=== PATIENT | male | born 1990 | race Caucasian/White ===

== ENCOUNTER → 2022-10-18 | Outpatient (CLI) | payer OTHER ==
[~2022-10-18] MED LIST: ANAPROX DS550 MG PO; ATIVAN1 MG PO; CLARITIN10 MG PO; FLEXERIL10 MG PO; KEFLEX500 MG PO; MEDROL DOSEPAK4 MG PO; MOTRIN800 MG PO; Meclizine25 MG PO; NKHM; PEN-VEE K500 MG PO; PERCOCET 325 MG1 TA2 PO; XANAX1 MG PO; ZANTAC150 MG PO; ZOFRAN ODT4 MG SL; ZOFRAN4 MG PO
[2022-10-18 16:19] LABS: BASO % 0.1 % (0.0-1.0); EOS % 0.2 % (1.0-4.0); HEMATOCRIT 39.6 % (42.0-52.0); LYMPH % 15.9 % (27.0-41.0); MEAN CELL VOLUME 91.2 fl (80.0-94.0); MEAN CORPUSCULAR HGB 30.4 pg (27.0-31.0); MEAN CORPUSCULAR HGB CONC 33.3 g/dl (33.0-37.0); MEAN PLATELET VOLUME 8.8 fl (9.6-12.3); MONO # 1.2 10*3/uL (0.1-1.0); MONO % 6.2 % (3.0-9.0); NEUT # 14.5 10*3/uL (2.3-7.9); NEUT % 76.6 % (47.0-73.0); PLATELET COUNT AUTOMATED 327 10*3/uL (130-400); RED BLOOD COUNT 4.34 10*6/uL (4.50-5.90); RETICULOCYTE % 1.06 % (0.50-2.50)
[2022-10-18 16:20] LABS: BILIRUBIN Negative (Negative); BLOOD Negative (Negative); CLARITY Clear (Clear); COLOR Yellow (Yellow); GLUCOSE Negative (Negative); KETONE Trace (Negative); LEUKO ESTERASE Negative (Negative); NITRITE Negative (Negative); SPECIFIC GRAVITY >= 1.030 (1.001-1.030)
[2022-10-18 16:31] LABS: MUCOUS 2+; RBC 0-2 rbc/hpf (0-2)
[2022-10-18 16:44] LABS: ALKALINE PHOSPHATASE 77 U/L (46-116); BUN 17 mg/dl (9-23); CHLORIDE 104 mmol/L (98-107); CHOLESTEROL 153 mg/dL (<200); GAMMA GLUTAMYL TRANSPEPTIDASE 47 U/L (0-73); LDL CHOLESTEROL 84 mg/dL (9-159); SGPT/ALT 72 U/L (10-49); T3 UPTAKE 29.8 % (22.4-36.7); THYROID STIM HORMONE (HS) 0.228 uIU/ml (0.550-4.780); THYROXINE (T4) TOTAL 5.5 ug/dl (4.5-10.9); TOTAL PROTEIN 6.5 gm/dL (6.0-8.0); TRIGLYCERIDES 179 mg/dl (<150)
[2022-10-18 16:46] LABS: VITAMIN D, 25-HYDROXY 37.7 ng/mL (30-100)
== END | disposition home or self-care (01) ==
LOC: LAB 16:04
PROVIDERS: ATTEND Family Medicine
DX: R79.89 Other specified abnormal findings of blood chemistry (principal); R53.83 Other fatigue; E78.5 Hyperlipidemia, unspecified; R74.8 Abnormal levels of other serum enzymes; E55.9 Vitamin D deficiency, unspecified

== ENCOUNTER → 2022-10-25 | Outpatient (CLI) | payer OTHER ==
[2022-10-25 15:05] LABS: HEMATOCRIT 39.9 % (42.0-52.0); MEAN CELL VOLUME 91.9 fl (80.0-94.0); MEAN CORPUSCULAR HGB 30.4 pg (27.0-31.0); MEAN CORPUSCULAR HGB CONC 33.1 g/dl (33.0-37.0); MEAN PLATELET VOLUME 8.9 fl (9.6-12.3); PLATELET COUNT AUTOMATED 238 10*3/uL (130-400); RED BLOOD COUNT 4.34 10*6/uL (4.50-5.90); RED CELL DISTRI WIDTH 11.9 % (0-14.5); RETICULOCYTE % 0.95 % (0.50-2.50); WHITE BLOOD COUNT 8.5 10*3/uL (4.8-10.8)
[2022-10-25 15:13] LABS: MANUAL DIFF REFLEX YES
[2022-10-25 15:40] LABS: ATYPICAL LYMPHS 1 % (0-0); BASOPHILS 1 % (0-1); BURR CELLS FEW; PLATELET SUFFICIENCY NORMAL (NORMAL); TOTAL CELLS COUNTED 100 #CELLS
[2022-10-27 12:07] LABS: A/G RATIO 1.4 (0.7-1.7); ALBUMIN 3.5 g/dL (2.9-4.4); ALPHA-1-GLOBULIN 0.2 g/dL (0.0-0.4); ALPHA-2-GLOBULIN 0.7 g/dL (0.4-1.0); GAMMA GLOBULIN 0.6 g/dL (0.4-1.8); GLOBULIN, TOTAL 2.5 g/dL (2.2-3.9); M-SPIKE Not Observed g/dL (Not Observed)
== END | disposition home or self-care (01) ==
LOC: LAB 14:43
PROVIDERS: ATTEND Family Medicine
DX: R79.89 Other specified abnormal findings of blood chemistry (principal); R53.83 Other fatigue; E78.5 Hyperlipidemia, unspecified; E55.9 Vitamin D deficiency, unspecified

== ENCOUNTER 2023-07-05 20:56 | Emergency (ER) | payer OTHER ==
[~2023-07-05] VITALS: Ht 182.8 cm; Wt 94.3 kg
[2023-07-05 21:02] VITALS: BP 123/100
[2023-07-05] MEDS ORDERED: COZAAR25 M1 PO (21:12)
[2023-07-05] MEDS ORDERED: FLUORESCEIN SODIUM 1 MG STRIP OPH ONE (21:15)
[2023-07-05] MEDS ORDERED: Tetracaine Hydrochloride 0.5% 4 ML BOT OPH ONE (21:15)
[2023-07-05] MEDS ORDERED: OFLOXACIN 10 ML10 M2 OS (21:53)
[2023-07-05] MEDS ORDERED: OFLOXACIN 0.3% 5 ML BOTTLE OPH ONE (21:55)
== END 2023-07-05 22:15 | disposition home or self-care (01) ==
LOC: ED 20:56
DX: S05.02XA Injury of conjunctiva and corneal abrasion without foreign body, left eye, initial encounter (principal); F90.9 Attention-deficit hyperactivity disorder, unspecified type; X58.XXXA Exposure to other specified factors, initial encounter; Y93.89 Activity, other specified; Y92.89 Other specified places as the place of occurrence of the external cause; Y99.8 Other external cause status

== ENCOUNTER → 2024-04-10 | Outpatient (CLI) | payer OTHER ==
[~2024-04-10] MED LIST changes: +COZAAR25 M1 PO; +OFLOXACIN 10 ML10 M2 OS
== END | disposition home or self-care (01) ==
LOC: RAD 13:43
PROVIDERS: ATTEND Family Medicine
DX: M19.011 Primary osteoarthritis, right shoulder (principal); M50.322 Other cervical disc degeneration at C5-C6 level

== ENCOUNTER → 2024-10-17 | Outpatient (CLI) | payer MEDICARE, MEDICAID ==
[2024-10-17 10:32] LABS: BASO % 0.4 % (0.0-1.0); EOS # 0.2 10*3/uL (0.0-0.4); EOS % 2.4 % (1.0-4.0); HEMATOCRIT 40.6 % (42.0-52.0); MEAN CELL VOLUME 89.4 fl (80.0-94.0); MEAN CORPUSCULAR HGB 29.3 pg (27.0-31.0); MEAN CORPUSCULAR HGB CONC 32.8 g/dl (33.0-37.0); MEAN PLATELET VOLUME 9.2 fl (9.6-12.3); MONO # 0.8 10*3/uL (0.1-1.0); MONO % 10.2 % (3.0-9.0); NEUT # 3.9 10*3/uL (2.3-7.9); NEUT % 52.4 % (47.0-73.0); PLATELET COUNT AUTOMATED 242 10*3/uL (130-400); RED BLOOD COUNT 4.54 10*6/uL (4.50-5.90); RETICULOCYTE % 0.84 % (0.50-2.50); WHITE BLOOD COUNT 7.4 10*3/uL (4.8-10.8)
[2024-10-17 10:37] LABS: BILIRUBIN 1+ (Negative); BLOOD Negative (Negative); CLARITY Clear (Clear); COLOR Dark Yellow (Yellow); GLUCOSE Negative (Negative); KETONE Trace (Negative); LEUKO ESTERASE Trace (Negative); NITRITE Negative (Negative); PH 6.5 (4.5-8.0)
[2024-10-17 10:52] LABS: MUCOUS 1+; RBC 0-2 rbc/hpf (0-2)
[2024-10-17 10:58] LABS: ALKALINE PHOSPHATASE 77 U/L (46-116); BUN 12 mg/dl (9-23); CHLORIDE 106 mmol/L (98-107); CHOLESTEROL 175 mg/dL (<200); GAMMA GLUTAMYL TRANSPEPTIDASE 38 U/L (0-73); LDL CHOLESTEROL 120 mg/dL (9-159); SGPT/ALT 38 U/L (5-49); TOTAL PROTEIN 6.6 gm/dL (6.0-8.0); TRIGLYCERIDES 147 mg/dl (<150)
[2024-10-17 11:24] LABS: VITAMIN D, 25-HYDROXY 44.4 ng/mL (30-100)
== END | disposition home or self-care (01) ==
LOC: LAB 09:41
PROVIDERS: ATTEND Family Medicine
DX: E78.5 Hyperlipidemia, unspecified (principal); E55.9 Vitamin D deficiency, unspecified; R79.89 Other specified abnormal findings of blood chemistry; R53.83 Other fatigue